=== PATIENT | male | born 1990 | race Caucasian/White ===

== ENCOUNTER 2016-12-24 09:47 | Emergency (ER) | payer OTHER ==
[2016-12-24 09:58] VITALS: RESP 16
--- NOTE | 2016-12-24 10:06 | EDPHY ---
H & P Stated Complaint: pt concerned for dvt-"pain/numbness in r murphy" same symptoms as dvt/pe 02/01 Source: Patient - Personal History Current Tetanus/Diphtheria Vaccine: Unsure Current Tetanus Diphtheria and Acellular Pertussis (TDAP): Unsure - Medical/Surgical History Other PMH: dvt/pe 02/01 from traveling - Social History Smoking Status: Never smoked HPI/ROS: CHIEF COMPLAINT: Right leg pain HISTORY OF PRESENT ILLNESS: This is a 26-year-old male presenting to the emergency department complaining of right lower leg pain. He states that history of a right lower extremity DVT in 01/2016 and pulmonary embolism while he was in [place], patient did receive treatment was on blood thinners for 7 months. The patient also states that he has Primary Care in [place] has had cardiac workup to rule out any cardiac findings also wore Holter monitor for a month with no significant cardiac findings. Denies any shortness of breath or chest pain at this time. REVIEW OF SYSTEMS: Constitutional: No fever, no chills. Eyes: No discharge. No blurred vision ENT: No sore throat. Cardiovascular: No chest pain, no palpitations. Respiratory: No cough, no shortness of breath. Gastrointestinal: No abdominal pain, no vomiting. Genitourinary: No urinary difficulty Musculoskeletal: No back pain. Right lower extremity pain Skin: No rashes. Neurological: No headache. (Amanda Whitney) - Physical Exam Exam: General Appearance: Alert, no distress. Eyes: Pupils equal and round no pallor or injection. ENT, Mouth: Mucous membranes moist. Respiratory: There are no retractions, lungs are clear to auscultation. Cardiovascular: Regular rate and rhythm. Gastrointestinal: Abdomen is soft and nontender, no masses, bowel sounds normal. Neurological: No focal deficits Skin: Warm and dry, no rashes. Musculoskeletal: Neck is supple nontender. Extremities: symmetrical, full range of motion. Right lower extremity tenderness anterior murphy. No calf tenderness negative Homans sign, no swelling positive CMS intact Psychiatric: Patient is oriented X 3. (Amanda hWitney) Constitutional: Initial Vital Signs Temperature (C) 36.7 C 12/24/16 09:55 Heart Rate 81 12/24/16 09:55 Respiratory Rate 16 12/24/16 09:55 Blood Pressure 122/78 H 12/24/16 09:55 O2 Sat (%) 95 06/07/17 09:55 O2 Delivery Mode Room Air Allergies/Adverse Reactions: No Known Allergies Allergy (Unverified 12/24/16 09:54) Home Medications: Medication Instructions Recorded Omeprazole 12/24/16 Medical Decision Making - Diagnostics Imaging Results: Imaging Impressions Extremity Venous Study 12/24/16 10:22 Impression: No deep venous thrombosis right leg. Findings and recommendations discussed with Emergency Department physician, Amanda Whitney NP at 10:54 hour, 12/24/2016. Final report concurs with initial preliminary interpretation. ED Course/Re-evaluation: The patient was evaluated and managed by the FILM OR VIDEOTAPE EDITOR. My cosignature indicates that I reviewed the chart and I agree with the findings and plan of care as documented. I am the secondary supervising physician. EKG shows normal sinus rhythm, normal rate, normal axis, normal intervals. There are no ST or T-wave abnormalities. EKG is normal as interpreted by me. (Jaylene Carrillo) Discussed ED plan of care: EKG shows normal sinus rhythm no ectopy. Right lower extremity ultrasound to rule out DVT 1055: Spoke with Dr. López negative DVT study 1120: Discussed all results with patient, patient to follow up with Dr. Cabello on Thursday per his scheduled appointment. Discussed if any worsening symptoms return to the ER. Discharge home---> stable. (Amanda Whitney) Differential Diagnosis: Other differential diagnosis considered but not limited to DVT, abnormal EKG, and palpitations (Amanda Whitney) Departure - Departure Disposition: Home, Routine, Self-Care Clinical Impression: Leg pain, right Condition: Good Instructions: Leg Pain (ED) Referrals: Tiffany Cabello MD [Primary Care Provider] - As per Instructions
--- NOTE | 2016-12-24 10:29 | CPEKG ---
Heart Rate: 71 RR Interval: 845 P-R Interval: 204 QRSD Interval: 100 QT Interval: 372 QTC Interval: 405 P Geronimo: 66 QRS Geronimo: 74 T Wave Geronimo: 34 EKG Severity - NORMAL ECG - EKG Impression: SINUS RHYTHM Electronically Signed By: Jaylene Carrillo 24-Dec-2016 15:41:54
[2016-12-24 11:45] VITALS: BP 124/80; PULSE 68; TEMP 98.2; O2SAT 96
== END 2016-12-24 11:45 | disposition home or self-care (01) ==
DX: M79.604 Pain in right leg (principal)

== ENCOUNTER 2018-07-05 17:18 | Emergency (ER) | payer OTHER ==
--- NOTE | 2018-07-05 17:50 | EDPHY ---
H & P Stated Complaint: Right calf "warmness", previous DVT. Time Seen by Provider: 07/05/18 17:30 HPI/ROS: CHIEF COMPLAINT: Right leg warmth, concern for DVT HISTORY OF PRESENT ILLNESS: 28-year-old male with history of DVT presents with right leg warmth. Onset abnormal sensation in the right calf 1 week ago. The sensation feels like a warmth, last several seconds and then resolves. No associated swelling or pain. Concern for recurrent DVT. The previous DVT was provoked by prolonged travel. No chest pain or shortness of breath. REVIEW OF SYSTEMS: complete 10 point ROS reviewed and is negative except for the noted elements in the HPI - Personal History Current Tetanus Diphtheria and Acellular Pertussis (TDAP): Unsure - Medical/Surgical History Hx Asthma: No Hx Chronic Respiratory Disease: No Hx Diabetes: No Hx Cardiac Disease: No Hx Renal Disease: No Hx Cirrhosis: No Hx Alcoholism: No Hx HIV/AIDS: No Hx Splenectomy or Spleen Trauma: No Other PMH: dvt/pe 02/01 from traveling - Social History Smoking Status: Never smoked Alcohol Use: Sober Drug Use: None - Physical Exam Exam: General Appearance: Alert, pleasant Eyes: Pupils equal and round, no conjunctival pallor ENT, Mouth: Mucous membranes moist Neck: Normal inspection Respiratory: Lungs are clear to auscultation Cardiovascular: Regular rate and rhythm Gastrointestinal: Abdomen is soft and nontender Neurological: A&O, nonfocal, normal gait Skin: Warm and dry, no rash Extremities: Nontender, no pedal edema, negative Homans sign, Achilles tendon intact, nontender Vascular: 2+ pedal pulses Psychiatric: Mood and affect normal Constitutional: Initial Vital Signs Temperature (C) 36.5 C 07/05/18 17:21 Heart Rate 61 07/05/18 17:21 Respiratory Rate 16 07/05/18 17:21 Blood Pressure 132/85 H 07/05/18 17:21 O2 Sat (%) 94 07/05/18 17:21 O2 Delivery Mode Room Air Allergies/Adverse Reactions: No Known Allergies Allergy (Unverified 12/24/16 09:54) Home Medications: Medication Instructions Recorded NK [No Known Home Meds] 07/05/18 Medical Decision Making - Diagnostics Imaging Results: Lower extremity ultrasound normal, read by the radiologist. Imaging: Discussed imaging studies w/ inbound call center representative Radiologist ED Course/Re-evaluation: Patient presents with a concern for recurrent DVT. Physical exam is unremarkable. Lower extremity ultrasound ordered and is normal. Results discussed with the patient. Will follow up with PCP. Differential Diagnosis: Differential diagnosis includes though it is not limited to DVT, tendon disruption, neurovascular compromise. Departure - Departure Disposition: Home, Routine, Self-Care Clinical Impression: Right leg paresthesias Condition: Good Instructions: Paresthesia (ED) Referrals: Tiffany Cabello MD [Primary Care Provider] - 3-4 days, if not improved
[2018-07-05 18:29] VITALS: BP 119/85
== END 2018-07-05 18:30 | disposition home or self-care (01) ==
DX: R20.2 Paresthesia of skin (principal); M79.661 Pain in right lower leg; Z86.718 Personal history of other venous thrombosis and embolism; Z86.711 Personal history of pulmonary embolism

== ENCOUNTER 2018-11-16 07:33 | Day surgery (SDC) | payer OTHER ==
[2018-11-16] MEDS ORDERED: NS 1,000 ML IV ONE ×2 (07:47→07:56)
--- NOTE | 2018-11-16 07:56 | EDPHY ---
H & P Time Seen by Provider: 11/16/18 07:55 HPI/ROS: Chief complaint. Abdominal pain HPI. 28-year-old male presents with abdominal pain that began about 3:00 a.m. This morning. Generalized though worse on the right. Denies nausea vomiting or diarrhea. Denies urinary symptoms. He has a tentative diagnosis of IBS per his PCP. No similar symptoms previously however. No history of previous abdominal surgery. No chest pain or shortness of breath. No fever. Last ate at 5:00 p.m. Yesterday ROS 10 systems were reviewed and negative with the exception of the elements mentioned in the history of present illness Past Medical/Surgical History: Possible IBS, previous DVT/PE after travel Social History: Single, nonsmoker, no alcohol Smoking Status: Never smoked Physical Exam: General Appearance: Alert well-developed male mild distress vital signs are stable Eyes: Pupils equal and round no pallor or injection. ENT, Mouth: Mucous membranes are moist. Respiratory: There are no retractions, lungs are clear to auscultation. Cardiovascular: Regular rate and rhythm. Gastrointestinal: Abdomen is soft with mild generalized tenderness but especially tenderness at McBurney's point in the right lower quadrant. No masses are palpable. Normal bowel sounds. Patient reports penis and testicles are normal Neurological: Awake and alert, sensory and motor exams grossly normal. Skin: Warm and dry, no rashes. Musculoskeletal: Neck is supple nontender. Extremities symmetrical, full range of motion. Psychiatric: Patient is oriented X 3, there is no agitation. Constitutional: Initial Vital Signs Temperature (C) 36.7 C 11/16/18 07:35 Heart Rate 75 11/16/18 07:35 Respiratory Rate 18 11/16/18 07:35 Blood Pressure 142/77 H 11/16/18 07:35 O2 Sat (%) 95 11/16/18 07:35 O2 Delivery Mode Room Air Allergies/Adverse Reactions: No Known Allergies Allergy (Unverified 12/24/16 09:54) Home Medications: Medication Instructions Recorded NK [No Known Home Meds] 07/05/18 Medical Decision Making - Diagnostics Imaging Results: Imaging Impressions Abdomen CT 11/16/18 07:57 Impression: 1. Enlarged retrocecal appendix with mild periappendiceal stranding, consistent with acute appendicitis. 2. Additional findings as above. Findings discussed with GLORIA LATIF 11/16/2018 at 8:56. Procedures: IV normal saline. Morphine for pain. Zofran for nausea ED Course/Re-evaluation: Point of care creatinine 0.9 A 8:30 a.m. Patient returns from CT. Pain was better after the morphine but it is coming back again. He request further pain medication. Med he is medicated with Dilaudid 0.5 mg IV Re-evaluation 9:00 a.m. Patient remains stable. He and I discussed imaging and lab results. We discussed treatment plan including recommendation for admission and surgery. He expresses understanding and agreement I consulted discussed case with Dr. Sol for surgery. He will see the patient in the ED Differential Diagnosis: I considered diverticulitis, appendicitis, urinary tract infection, pyelonephritis, kidney stone, diverticulitis - Data Points Laboratory Results: Laboratory Results 11/16/18 07:45 11/16/18 07:45 11/16/18 11/16/18 11/16/18 08:02 07:45 07:45 WBC 13.84 10^3/uL H 10^3/uL (3.80-9.50) RBC 4.89 10^6/uL 10^6/uL (4.40-6.38) Hgb 15.3 g/dL g/dL (13.7-17.5) POC Hgb 15.3 gm/dL gm/dL (13.7-17.5) Hct 42.6 % % (40.0-51.0) POC Hct 45 % % (40-51) MCV 87.1 fL fL (81.5-99.8) MCH 31.3 pg pg (27.9-34.1) MCHC 35.9 g/dL g/dL (32.4-36.7) RDW 12.4 % % (11.5-15.2) Plt Count 277 10^3/uL 10^3/uL (150-400) MPV 10.1 fL fL (8.7-11.7) Neut % (Auto) 81.5 % H % (39.3-74.2) Lymph % (Auto) 10.5 % L % (15.0-45.0) [place] % (Auto) 7.2 % % (4.5-13.0) Eos % (Auto) 0.2 % L % (0.6-7.6) Baso % (Auto) 0.2 % L % (0.3-1.7) Nucleat RBC Rel Count 0.0 % % (0.0-0.2) Absolute Neuts (auto) 11.28 10^3/uL H 10^3/uL (1.70-6.50) Absolute Lymphs (auto) 1.46 10^3/uL 10^3/uL (1.00-3.00) Absolute Monos (auto) 0.99 10^3/uL H 10^3/uL (0.30-0.80) Absolute Eos (auto) 0.03 10^3/uL 10^3/uL (0.03-0.40) Absolute Basos (auto) 0.03 10^3/uL 10^3/uL (0.02-0.10) Absolute Nucleated RBC 0.00 10^3/uL 10^3/uL (0-0.01) Immature Gran % 0.4 % % (0.0-1.1) Immature Gran # 0.05 10^3/uL 10^3/uL (0.00-0.10) POC Sodium 141 mEq/L mEq/L (135-145) Sodium 139 mEq/L mEq/L (135-145) POC Potassium 3.5 mEq/L mEq/L (3.3-5.0) Potassium 3.8 mEq/L mEq/L (3.5-5.2) POC Chloride 102 mEq/L mEq/L (97-110) Chloride 101 mEq/L mEq/L (97-110) Carbon Dioxide 26 mEq/l mEq/l (22-31) POC Total CO2 26 mEq/L mEq/L (22-31) Anion Gap 12 mEq/L mEq/L (6-14) POC BUN 20 mg/dL mg/dL (7-23) BUN 21 mg/dL mg/dL (7-23) Creatinine 0.9 mg/dL mg/dL (0.7-1.3) POC Creatinine 0.9 mg/dL mg/dL (0.7-1.3) Estimated GFR > 60 Glucose 109 mg/dL H mg/dL (70-100) POC Glucose 111 mg/dL H mg/dL (70-100) Calcium 10.2 mg/dL mg/dL (8.5-10.4) Medications Given: Discontinued Medications Hydromorphone HCl (Dilaudid) 0.5 mg IVP EDNOW ONE Stop: 11/16/18 08:34 Last Admin: 11/16/18 08:39 Dose: 0.5 mg Sodium Chloride (Ns) 1,000 mls @ 0 mls/hr IV ONCE ONE PRN Reason: Wide Open Stop: 11/16/18 07:48 Last Admin: 11/16/18 07:49 Dose: 1,000 mls Sodium Chloride (Ns) 1,000 mls @ 0 mls/hr IV EDNOW ONE; Wide Open PRN Reason: Protocol Stop: 11/16/18 07:57 Last Admin: 11/16/18 08:40 Dose: 1,000 mls Morphine Sulfate (Morphine) 6 mg IVP EDNOW ONE Stop: 11/16/18 08:04 Last Admin: 11/16/18 08:07 Dose: 6 mg Ondansetron HCl (Zofran) 4 mg IVP EDNOW ONE Stop: 11/16/18 08:04 Last Admin: 11/16/18 08:07 Dose: 4 mg Point of Care Test Results: Chemistry 11/16/18 08:02 POC Sodium 141 mEq/L mEq/L (135-145) POC Potassium 3.5 mEq/L mEq/L (3.3-5.0) POC Chloride 102 mEq/L mEq/L (97-110) POC Total CO2 26 mEq/L mEq/L (22-31) POC BUN 20 mg/dL mg/dL (7-23) POC Creatinine 0.9 mg/dL mg/dL (0.7-1.3) POC Glucose 111 mg/dL H mg/dL (70-100) ISTAT H&H 11/16/18 08:02 POC Hgb 15.3 gm/dL gm/dL (13.7-17.5) POC Hct 45 % % (40-51) Departure - Departure Disposition: [facility] Inpatient Acute Clinical Impression: Acute appendicitis Qualifiers: Acute appendicitis type: with localized peritonitis Appendicitis gangrene presence: without gangrene Appendicitis perforation presence: without perforation Appendicitis abscess presence: without abscess Qualified Code(s): K35.30 - Acute appendicitis with localized peritonitis, without perforation or gangrene Condition: Fair Referrals: Tiffany Cabello MD [Primary Care Provider] - As per Instructions
[2018-11-16] MEDS ORDERED: ONDANSETRON 4 MG/2 ML VIAL IVP ONE (08:03)
[2018-11-16 08:05] LABS: PLATELET COUNT 277 10^3/uL (150-400)
[2018-11-16] MEDS ORDERED: IOPAMIDOL (ISOVUE-300) 100 ML BTL ONE (08:07)
[2018-11-16] MEDS ORDERED: HYDROmorphONE/DILAUDID 2 MG/ML INJ IVP ONE (08:33)
[2018-11-16] MEDS ORDERED: ERTAPENEM 1 GM in NS 100 ML IV ONE (09:07)
[2018-11-16] MEDS ORDERED: BUPIVACAINE 0.5% 30 ML SDV ONE (09:39)
--- NOTE | 2018-11-16 09:58 | PDGENHP ---
History and Physical - Chief Complaint abd pain - History of Present Illness 28 y/o male with onset abd pain at 3 AM worsening through the exceptional student education aide. He presented to the ED and was seen by Dr. Appiah who diagnosed appendicitis confirmed by CT. He denies vomiting or diarrhea. He has anorexia. History Information - Allergies/Home Medication List Allergies/Adverse Reactions: No Known Allergies Allergy (Verified 11/16/18 09:30) Home Medications: NK [No Known Home Meds] 07/05/18 [Last Taken Unknown] I have personally reviewed and updated: family history, medical history, social history, surgical history - Surgical History Additional surgical history: ear surgery as a child - Family History Positive for: non-pertinent - Social History Smoking Status: Never smoked Alcohol Use: Occasionally Drug Use: None Additional social history: software applications specialist Review of Systems Review of Systems: Respiratory: Reports: no symptoms Gastrointestinal: Reports: abdominal pain, other (anorexia) Genitourinary: Reports: no symptoms Physical Exam Physical Exam: Temp Pulse Resp BP Pulse Ox 36.7 C 82 17 121/73 H 99 11/16/18 07:35 11/16/18 09:27 11/16/18 09:27 11/16/18 09:27 11/16/18 09:27 O2 (L/minute) 2 Constitutional: uncomfortable Eyes: anicteric sclera Ears, Nose, Mouth, Throat: no oral mucosal ulcers Cardiovascular: regular rate and rhythym, no murmur, rub, or gallop Respiratory: no respiratory distress, no rales or rhonchi, clear to auscultation Gastrointestinal: tenderness (lower midline with guarding) Genitourinary: no bladder fullness Skin: warm Psychiatric: interacting appropriately Lab Data & Imaging Review 11/16/18 07:45 11/16/18 07:45 WBC 13.84 10^3/uL (3.80-9.50) H 11/16/18 07:45 RBC 4.89 10^6/uL (4.40-6.38) 11/16/18 07:45 Hgb 15.3 g/dL (13.7-17.5) 11/16/18 07:45 POC Hgb 15.3 gm/dL (13.7-17.5) 11/16/18 08:02 Hct 42.6 % (40.0-51.0) 11/16/18 07:45 POC Hct 45 % (40-51) 11/16/18 08:02 MCV 87.1 fL (81.5-99.8) 11/16/18 07:45 MCH 31.3 pg (27.9-34.1) 11/16/18 07:45 MCHC 35.9 g/dL (32.4-36.7) 11/16/18 07:45 RDW 12.4 % (11.5-15.2) 11/16/18 07:45 Plt Count 277 10^3/uL (150-400) 11/16/18 07:45 MPV 10.1 fL (8.7-11.7) 11/16/18 07:45 Neut % (Auto) 81.5 % (39.3-74.2) H 11/16/18 07:45 Lymph % (Auto) 10.5 % (15.0-45.0) L 11/16/18 07:45 [place] % (Auto) 7.2 % (4.5-13.0) 11/16/18 07:45 Eos % (Auto) 0.2 % (0.6-7.6) L 11/16/18 07:45 Baso % (Auto) 0.2 % (0.3-1.7) L 11/16/18 07:45 Nucleat RBC Rel Count 0.0 % (0.0-0.2) 11/16/18 07:45 Absolute Neuts (auto) 11.28 10^3/uL (1.70-6.50) H 11/16/18 07:45 Absolute Lymphs (auto) 1.46 10^3/uL (1.00-3.00) 11/16/18 07:45 Absolute Monos (auto) 0.99 10^3/uL (0.30-0.80) H 11/16/18 07:45 Absolute Eos (auto) 0.03 10^3/uL (0.03-0.40) 11/16/18 07:45 Absolute Basos (auto) 0.03 10^3/uL (0.02-0.10) 11/16/18 07:45 Absolute Nucleated RBC 0.00 10^3/uL (0-0.01) 11/16/18 07:45 Immature Gran % 0.4 % (0.0-1.1) 11/16/18 07:45 Immature Gran # 0.05 10^3/uL (0.00-0.10) 11/16/18 07:45 POC Sodium 141 mEq/L (135-145) 11/16/18 08:02 Sodium 139 mEq/L (135-145) 11/16/18 07:45 POC Potassium 3.5 mEq/L (3.3-5.0) 11/16/18 08:02 Potassium 3.8 mEq/L (3.5-5.2) 11/16/18 07:45 POC Chloride 102 mEq/L (97-110) 11/16/18 08:02 Chloride 101 mEq/L (97-110) 11/16/18 07:45 Carbon Dioxide 26 mEq/l (22-31) 11/16/18 07:45 POC Total CO2 26 mEq/L (22-31) 11/16/18 08:02 Anion Gap 12 mEq/L (6-14) 11/16/18 07:45 POC BUN 20 mg/dL (7-23) 11/16/18 08:02 BUN 21 mg/dL (7-23) 11/16/18 07:45 Creatinine 0.9 mg/dL (0.7-1.3) 11/16/18 07:45 POC Creatinine 0.9 mg/dL (0.7-1.3) 11/16/18 08:02 Estimated GFR > 60 11/16/18 07:45 Glucose 109 mg/dL (70-100) H 11/16/18 07:45 POC Glucose 111 mg/dL (70-100) H 11/16/18 08:02 Calcium 10.2 mg/dL (8.5-10.4) 11/16/18 07:45 Imaging Review: CT abd/pelvis reviewed on PACS mildly inflamed appendix, pre sacral, no appendicolith Assessment & Plan Assessment: Acute appendicitis (Acute) Plan: We discussed options including 1. antibiotic therapy alone 2. appendectomy ( favoring laparoscopic). I recommended laparoscopic appendectomy and he agrees. We discussed surgery, risks and expected recovery. Informed consent was obtained. Patricia Borden MD, FACS
[2018-11-16] MEDS ORDERED: LR 1,000 ML IV ONE (10:04)
[2018-11-16] MEDS ORDERED: MIDAZOLAM 2 MG/2 ML VIAL ONE (10:21)
[2018-11-16] MEDS ORDERED: MIDAZOLAM 2 MG/2 ML VIAL IVP ONE (10:24)
[2018-11-16] MEDS ORDERED: PROMETHAZINE HCL 25 MG/ML INJ IVP PRN (10:25)
[2018-11-16] MEDS ORDERED: ACETAMINOPHEN 500 MG TAB PO PRN (10:25)
[2018-11-16] MEDS ORDERED: LR 500 ML IV PRN (10:25)
[2018-11-16] MEDS ORDERED: MEPERIDINE 25 MG/0.5 ML AMP IVP PRN (10:25)
[2018-11-16] MEDS ORDERED: METOCLOPRAMIDE 10 MG/2 ML VIAL IVP PRN (10:25)
[2018-11-16] MEDS ORDERED: fentaNYL 100 MCG/2 ML INJ IVP PRN (10:25)
[2018-11-16] MEDS ORDERED: ONDANSETRON 4 MG/2 ML VIAL IVP PRN (10:25)
[2018-11-16] MEDS ORDERED: NALOXONE HCL 0.4 MG/ML INJ IVP PRN (10:25)
[2018-11-16] MEDS ORDERED: HYDROCODONE/APAP 5/325 TAB PO PRN ×2 (10:25→11:25)
--- NOTE | 2018-11-16 10:25 | PDANEPAE ---
ANE Past Medical History - Pulmonary History Hx Oxygen in Use at Home: No - Endocrine History Hx Diabetes: No Obesity: no ANE Review of Systems Review of Systems: ANE Patient History - Allergies Allergies/Adverse Reactions: No Known Allergies Allergy (Verified 11/16/18 09:30) - Home Medications Home medications: home medication list seen and reviewed Home Medications: NK [No Known Home Meds] 07/05/18 [Last Taken Unknown] - NPO status NPO Status: no food or drink >8 hours NPO Since - Liquids (Date): 11/16/18 NPO Since - Liquids (Time): 07:00 NPO Since - Solids (Date): 11/15/18 NPO Since - Solids (Time): 17:00 - Anes Hx Anes Hx: no prior problems - Smoking Hx Smoking Status: Never smoked - Alcohol Use Alcohol Use: Occasionally ANE Labs/Vital Signs - Labs Result Diagrams: 11/16/18 07:45 11/16/18 07:45 - Vital Signs Blood Pressure: 121/73 Heart Rate: 82 Respiratory Rate: 17 O2 Sat (%): 99 Height: 167.64 cm Weight: 81.647 kg ANE Physical Exam - Airway Neck exam: FROM Mallampati Score: Class 1 Mouth exam: normal dental/mouth exam - Pulmonary Pulmonary: no respiratory distress, no rales or rhonchi, clear to auscultation - Cardiovascular Cardiovascular: regular rate and rhythym, no murmur, rub, or gallop - ASA Status ASA Status: I, E ANE Anesthesia Plan Anesthesia Plan: general endotracheal anesthesia
[2018-11-16] MEDS ORDERED: fentaNYL 100 MCG/2 ML INJ ONE (10:26)
[2018-11-16] MEDS ORDERED: PROPOFOL 200 MG/20 ML VIAL ONE (10:26)
[2018-11-16] MEDS ORDERED: ROCURONIUM 50 MG/5 ML VIAL ONE (10:27)
[2018-11-16] MEDS ORDERED: LIDOCAINE 2% 2 ML INJ ONE (10:27)
[2018-11-16] MEDS ORDERED: KETOROLAC 30 MG/1 ML SDV ONE (10:27)
[2018-11-16] MEDS ORDERED: DEXAMETHASONE 4 MG/ML VIAL ONE ×2 (10:27)
[2018-11-16] MEDS ORDERED: ONDANSETRON 4 MG/2 ML VIAL ONE (10:27)
[2018-11-16] MEDS ORDERED: GLYCOPYRROLATE 0.2 MG/1 ML VIAL ONE (11:07)
[2018-11-16] MEDS ORDERED: NEOSTIGMINE METHYLSULFATE 10 MG/10 ML MDV ONE (11:07)
[2018-11-16] MEDS ORDERED: ONDANSETRON DISINTEGRATING 4 MG TAB PO PRN (11:24)
--- NOTE | 2018-11-16 11:24 | POSTOPPROG ---
Post Op Note Date of Operation: 11/16/18 Surgeon: Eloy Borden (, FACS) Anesthesiologist: Keagan Love MD Anesthesia: GET(General Endotracheal) Pre-op Diagnosis: appendicitis Post-op Diagnosis: same Procedure: lap appendectomy Findings: acute appendicitis Inf/Abcess present in the surg proc area at time of surgery?: Yes Depth: Organ Space EBL: Minimal (5 ml) Bowel Protocol: N/A Clean Closure Performed: N/A Specimen(s): appendix
--- NOTE | 2018-11-16 11:24 | POSTANESTH ---
Post Anesthetic Evaluation Cardiovascular Status: Normal, Stable, Similar to Pre-Op Cond Respiratory Status: Normal, Stable, Similar to Pre-op Cond. Level of Consciousness/Mental Status: Can Participate in Eval, Mildly Sleepy, Arousable Pain Control: Adequate, Prn Tx Ordered Nausea/Vomiting Control: Adequate, Prn Tx Ordered Complications Possibly Related to Anesthesia: None Noted
[2018-11-16] MEDS ORDERED: IBUPROFEN 600 MG TAB PO PRN (11:26)
[2018-11-16] MEDS ORDERED: ENOXAPARIN 40 MG/0.4 ML SYR SC SCH (12:00)
[2018-11-16] MEDS ORDERED: APIXABAN 2.5 MG TAB PO SCH ×2 (12:00→21:00)
[2018-11-16] MEDS ORDERED: ENOXAPARIN 40 MG/0.4 ML SYR SC ONE (12:30)
[2018-11-16 13:29] VITALS: BP 118/65
== END 2018-11-16 13:15 | disposition home or self-care (01) ==
LOC: UNDOADMIN 09:09 → FSGY 09:09 → UNDODISIN 13:15
PROVIDERS: ATTEND Surgery
PROC: 0DTJ4ZZ Resection of Appendix, Percutaneous Endoscopic Approach (ICD-10-PCS; principal; 2018-11-16 10:30)
DX: K35.30 Acute appendicitis with localized peritonitis, without perforation or gangrene (principal); E86.9 Volume depletion, unspecified
CPT/HCPCS: 82435-PO; 82565-PO; 82947-PO; 84132-PO; 84295-PO; 84520-PO; 85014-ER; 96365; J1100; J1170; J1335; J1650; J1885; J2250; J2270; J2405; J2704; J3010; Q9967